=== PATIENT | female | born 1950 | race Caucasian/White ===

== ENCOUNTER 2019-06-21 07:50 | Emergency (ER) | payer OTHER ==
[~2019-06-21] VITALS: Ht 152.4 cm; Wt 70.8 kg
[2019-06-21] MEDS ORDERED: CO Q-1010 MG (08:12)
[2019-06-21] MEDS ORDERED: LAMOTRIGINE100 MG (08:12)
[2019-06-21] MEDS ORDERED: VITAMIN D32000 UNI1 (08:13)
[2019-06-21] MEDS ORDERED: ZANAFLEX4 M1 (08:14)
[2019-06-21] MEDS ORDERED: RESTORIL15 M1 PO (08:14)
[2019-06-21] MEDS ORDERED: BUSPIRONE HCL7.5 MG (08:14)
[2019-06-21] MEDS ORDERED: CYMBALTA60 MG (08:15)
[2019-06-21] MEDS ORDERED: COZAAR25 MG (08:15)
[2019-06-21] MEDS ORDERED: LIPITOR40 MG (08:16)
== END 2019-06-21 11:12 | disposition home or self-care (01) ==
LOC: ER 07:50
DX: R10.2 Pelvic and perineal pain (principal)

== ENCOUNTER → 2019-07-15 06:00 | Outpatient (CLI) | payer OTHER ==
[~2019-07-15 06:00] MED LIST: BUSPIRONE HCL7.5 MG; CALTRATE 600 +1 EACH PO; CO Q-1010 MG; COZAAR25 MG; CYMBALTA60 MG; LAMOTRIGINE100 MG; LIPITOR40 MG; NITROGLYCERIN0.4 MG SL; RESTORIL15 M1 PO; VITAMIN D32000 UNI1; ZANAFLEX4 M1
== END | disposition home or self-care (01) ==
LOC: EKG 06:00 → ADM 08:00 → CIR.AMB 07-21 08:00 → EDSTATUS 07-21 08:00 → ADM 07-21 08:00
DX: N84.0 Polyp of corpus uteri (principal); N95.0 Postmenopausal bleeding; I10 Essential (primary) hypertension

== ENCOUNTER → 2019-07-29 | Emergency (ER) | payer OTHER ==
[~2019-07-29] VITALS: Ht 157.5 cm; Wt 63.0 kg
== END | disposition home or self-care (01) ==
LOC: ER 11:48
DX: J06.9 Acute upper respiratory infection, unspecified (principal)